=== PATIENT | female | born 1985 | race African-American/Black ===

== ENCOUNTER → 2016-08-03 | Day surgery (SDC) | payer OTHER ==
[~2016-08-03] VITALS: Ht 167.6 cm; Wt 83.9 kg
--- NOTE | 2016-08-03 14:21 | Operative Report ---
Operative/Inv Procedure Report Surgery Date: 08/03/16 Name of Procedure: Bilateral breast reduction Pre-Operative Diagnosis: Breast hypertrophy Post-Operative Diagnosis: Same Estimated Blood Loss: scant (200) Surgeon/[employer] Consultant: RON DOLAN MD Anesthesia: general endotracheal tube Operative/Procedure Note Note: Patient was counseled extensively in regards to the procedure the alternatives risks and expected outcomes as relates to her request for surgical intervention to reduce the size of her breasts. No guarantees were given in regards to cup size. She is asymmetric preoperatively and told her she will be on even postoperatively as well. The patient was given an ASO PS informed consent which we discussed again today. Talked about definitely visible scarring possibly unsightly or symptomatic. Talked about changes in nipple sensation or the risk of loss of nipple tissue once excepted she was marked in the standing position for any preoperative pedicle Coyle pattern technique with the use of a measuring tape. She was then taken to the operating placed supine on the table Venodyne boots are placed and then general anesthesia was established intravenous antibiotic given. The chest were prepped and draped in usual sterile fashion. Deepened and a skin flap was developed. The pedicle was then thinned approximately 10 cm in width and superior medial and lateral segments were removed bilaterally. Temporary closure was placed and then the patient was put in the sitting position to beth the areola complex position. This was done with a ruler. There was a 3 layer closure of all sites. Ends dictation
== END ==
LOC: STS 01:07
DX: N62 Hypertrophy of breast (principal); M54.89 Other dorsalgia; D64.89 Other specified anemias
CPT/HCPCS: 81025; 88305; J0690; J2250; Q9968